=== PATIENT | male | born 1965 ===

== ENCOUNTER → 2018-11-02 | Outpatient (CLI) | payer OTHER | END | disposition home or self-care (01) | LOC: MRI 07:15 | DX: M25.561 Pain in right knee (principal); M25.562 Pain in left knee; S83.281A Other tear of lateral meniscus, current injury, right knee, initial encounter | CPT/HCPCS: 73721 ==

== ENCOUNTER 2019-06-26 14:47 | Outpatient (CLI) | payer OTHER | END 2019-06-26 14:54 | disposition home or self-care (01) | LOC: RAD 14:47 | DX: M77.01 Medial epicondylitis, right elbow (principal) ==

== ENCOUNTER → 2019-07-13 06:00 | Outpatient (CLI) | payer OTHER | END | disposition home or self-care (01) | LOC: LAB 06:00 → ADM 08:00 → CIR.AMB 07-20 08:00 → EDSTATUS 07-20 08:00 → ADM 07-20 08:00 | DX: S46.321A Laceration of muscle, fascia and tendon of triceps, right arm, initial encounter (principal); M77.01 Medial epicondylitis, right elbow; I10 Essential (primary) hypertension ==